=== PATIENT | female | born 1995 | race Caucasian/White ===

== ENCOUNTER 2018-10-12 13:32 | Emergency (ER) | payer OTHER ==
[2018-10-12] MEDS ORDERED: TETANUS & DIPHTHERIA TOX,ADULT 0.5 ML VIAL ONE (15:30)
[2018-10-12] MEDS ORDERED: LIDOCAINE 1% MPF 5 ML VIAL ONE (15:40)
--- NOTE | 2018-10-12 15:41 | ER ---
Nurse's Notes [facility] Name: Marlen Crenshaw Age: 22 yrs Sex: Female : 1995 Arrival Date: 10/12/2018 Time: 13:35 Bed 23 Private MD: Tio Macias Diagnosis: Acute tonsillitis;Acute pharyngitis Presentation: 10/12 13:45 Presenting complaint: Patient states: sore throat, fatigue x 3 days. Transition of sv care: patient was not received from another setting of care. Onset of symptoms was October 10, 2018. Initial Sepsis Screen: Does the patient meet any 2 criteria? No. Patient's initial sepsis screen is negative. Does the patient have a suspected source of infection? No. Patient's initial sepsis screen is negative. Care prior to arrival: None. 13:45 Method Of Arrival: Ambulatory sv 13:45 Acuity: BRENDA 4 sv 16:07 Risk Assessment: Do you want to hurt yourself or someone else? Patient reports no aj1 desire to harm self or others. Triage Assessment: 13:45 General: Appears in no apparent distress. uncomfortable, Behavior is calm, cooperative, sv appropriate for age. Pain: Complains of pain in throat Pain currently is 3 out of 10 on a pain scale. Quality of pain is described as burning. EENT: Throat has enlarged tonsils bilaterally. Neuro: Level of Consciousness is awake, alert, obeys commands, Oriented to person, place, time, situation, Gait is steady, Speech is normal. Respiratory: Respiratory effort is even, unlabored, Respiratory pattern is regular, symmetrical. Historical: - Allergies: 13:45 Sulfa (Sulfonamide Antibiotics); sv 13:45 Amoxicillin; sv 13:45 Clarithromycin; sv - PMHx: 13:45 None; sv - PSHx: 13:45 None; sv - Immunization history:: Adult Immunizations up to date. - Social history:: Smoking status: Patient uses tobacco products, denies chronic smoking, but will smoke occasionally. - Ebola Screening: : No symptoms or risks identified at this time. - Family history:: pertinent for not pertinent. Screenin:45 Abuse screen: Denies threats or abuse. Denies injuries from another. Nutritional aj1 screening: No deficits noted. Tuberculosis screening: No symptoms or risk factors identified. 16:07 Fall Risk None identified. aj1 Assessment: 15:45 General: Appears in no apparent distress. uncomfortable, Behavior is calm, cooperative, aj1 appropriate for age. Pain: Complains of pain in left aspect of posterior pharynx and right aspect of posterior pharynx. Neuro: Level of Consciousness is awake, alert, obeys commands. Cardiovascular: Patient's skin is warm and dry. Respiratory: Airway is patent Respiratory effort is even, unlabored, Respiratory pattern is regular, symmetrical, Breath sounds are clear bilaterally. GI: No signs and/or symptoms were reported involving the gastrointestinal system. : No signs and/or symptoms were reported regarding the genitourinary system. EENT: Throat is reddened has enlarged tonsils bilaterally. Derm: No signs and/or symptoms reported regarding the dermatologic system. Skin is pink, warm \T\ dry. normal. Musculoskeletal: No signs and/or symptoms reported regarding the musculoskeletal system. Circulation, motion, and sensation intact. 15:58 Reassessment: Patient's mother states patient is currently taking doxycycline and would aj1 like to know if patient should take both the doxy and the prescribed clindamycin at the same time. Will clarify with Dr. Heck. 16:03 Reassessment: Notified Dr. Heck who will come talk to the patient. aj1 16:38 Reassessment: Patient appears in no apparent distress at this time. No changes from aj1 previously documented assessment. Patient and/or family updated on plan of care and expected duration. Pain level reassessed. Patient is alert, oriented x 3, equal unlabored respirations, skin warm/dry/pink. Vital Signs: 13:46 BP 134 / 71; Pulse 77; Resp 16; Temp 98.2; Pulse Ox 99% ; Weight 65.77 kg; Height 5 ft. sv 8 in. (172.72 cm); Pain 3/10; 13:46 Body Mass Index 22.05 (65.77 kg, 172.72 cm) sv ED Course: 13:35 Patient arrived in ED. ag5 13:36 Tio Macias MD is Private Physician. ag5 13:45 Triage completed. sv 13:46 Arm band placed on. sv 14:39 Throat Culture Sent. sv 14:56 Narendra Heck MD is Attending Physician. maura 15:40 Tio Macias MD is Referral Physician. maura 15:45 nIes Aguila, RN is Primary Nurse. aj1 15:45 Patient has correct armband on for positive identification. Bed in low position. Call aj1 light in reach. Side rails up X 1. 15:45 No provider procedures requiring assistance completed. Patient did not have IV access aj1 during this emergency room visit. Administered Medications: 16:37 Drug: Clindamycin 300 mg Route: PO; aj1 16:39 Follow up: Response: No adverse reaction aj1 Outcome: 15:41 Discharge ordered by . [facility] 16:42 Discharged to home ambulatory. aj1 16:42 Condition: good 16:42 Discharge instructions given to patient, family, Instructed on discharge instructions, follow up and referral plans. medication usage, Demonstrated understanding of instructions, follow-up care, medications, Prescriptions given X 1. 16:46 Patient left the ED. aj Signatures: Ines Aguila, RN RN Yuridia Khalil RN RN sv Anderson, Corey, MD MD cha Gaskin, Alphonso ag5
--- NOTE | 2018-10-12 15:41 | EDPHYS ---
Physician Documentation [facility] Name: Marlen Crenshaw Age: 22 yrs Sex: Female : 1995 Arrival Date: 10/12/2018 Time: 13:35 Bed 23 Private MD: Tio Macias ED Physician Narendra Heck HPI: 10/12 15:34 This 22 yrs old Female presents to ER via Ambulatory with complaints of maura SWOLLEN TONSILS, Sore Throat. 15:34 The patient presents with sore throat. The patient describes throat pain as constant. maura Onset: The symptoms/episode began/occurred 3 day(s) ago. Severity of symptoms: At their worst the symptoms were mild. Modifying factors: The symptoms are alleviated by nothing. Associated signs and symptoms: The patient has no apparent associated signs or symptoms. The patient has not experienced similar symptoms in the past. Historical: - Allergies: 13:45 Sulfa (Sulfonamide Antibiotics); sv 13:45 Amoxicillin; sv 13:45 Clarithromycin; sv - PMHx: 13:45 None; sv - PSHx: 13:45 None; sv - Immunization history:: Adult Immunizations up to date. - Social history:: Smoking status: Patient uses tobacco products, denies chronic smoking, but will smoke occasionally. - Ebola Screening: : No symptoms or risks identified at this time. - Family history:: pertinent for not pertinent. ROS: 15:34 Constitutional: Negative for fever, chills, and weight loss, Eyes: Negative for injury, maura pain, redness, and discharge, Neck: Negative for injury, pain, and swelling, Cardiovascular: Negative for chest pain, palpitations, and edema, Respiratory: Negative for shortness of breath, cough, wheezing, and pleuritic chest pain, Abdomen/GI: Negative for abdominal pain, nausea, vomiting, diarrhea, and constipation, Back: Negative for injury and pain, : Negative for injury, bleeding, discharge, and swelling, MS/Extremity: Negative for injury and deformity, Skin: Negative for injury, rash, and discoloration, Neuro: Negative for headache, weakness, numbness, tingling, and seizure, Psych: Negative for depression, anxiety, suicide ideation, homicidal ideation, and hallucinations, Allergy/Immunology: Negative for hives, rash, and allergies, Endocrine: Negative for neck swelling, polydipsia, polyuria, polyphagia, and marked weight changes, Hematologic/Lymphatic: Negative for swollen nodes, abnormal bleeding, and unusual bruising. 15:34 ENT: Positive for difficulty swallowing, sore throat. Exam: 15:34 Constitutional: This is a well developed, well nourished patient who is awake, alert, maura and in no acute distress. Head/Face: Normocephalic, atraumatic. Eyes: Pupils equal round and reactive to light, extra-ocular motions intact. Lids and lashes normal. Conjunctiva and sclera are non-icteric and not injected. Cornea within normal limits. Periorbital areas with no swelling, redness, or edema. Neck: Trachea midline, no thyromegaly or masses palpated, and no cervical lymphadenopathy. Supple, full range of motion without nuchal rigidity, or vertebral point tenderness. No Meningismus. Chest/axilla: Normal chest wall appearance and motion. Nontender with no deformity. No lesions are appreciated. Cardiovascular: Regular rate and rhythm with a normal S1 and S2. No gallops, murmurs, or rubs. Normal PMI, no JVD. No pulse deficits. Respiratory: Lungs have equal breath sounds bilaterally, clear to auscultation and percussion. No rales, rhonchi or wheezes noted. No increased work of breathing, no retractions or nasal flaring. Abdomen/GI: Soft, non-tender, with normal bowel sounds. No distension or tympany. No guarding or rebound. No evidence of tenderness throughout. Back: No spinal tenderness. No costovertebral tenderness. Full range of motion. Skin: Warm, dry with normal turgor. Normal color with no rashes, no lesions, and no evidence of cellulitis. MS/ Extremity: Pulses equal, no cyanosis. Neurovascular intact. Full, normal range of motion. Neuro: Awake and alert, GCS 15, oriented to person, place, time, and situation. Cranial nerves II-XII grossly intact. Motor strength 5/5 in all extremities. Sensory grossly intact. Cerebellar exam normal. Normal gait. Psych: Awake, alert, with orientation to person, place and time. Behavior, mood, and affect are within normal limits. 15:34 ENT: Posterior pharynx: Tonsils: bilaterally enlarged, with erythema, no exudate. 15:42 Abdomen/GI: Inspection: abdomen appears normal, Bowel sounds: normal, Palpation: [facility] abdomen is soft and non-tender, mass, is not appreciated, Liver: no appreciated palpable abnormalities, Hernia: not appreciated. Vital Signs: 13:46 BP 134 / 71; Pulse 77; Resp 16; Temp 98.2; Pulse Ox 99% ; Weight 65.77 kg; Height 5 ft. sv 8 in. (172.72 cm); Pain 3/10; 13:46 Body Mass Index 22.05 (65.77 kg, 172.72 cm) MDM: 15:02 Patient medically screened. [facility] 15:40 Data reviewed: vital signs, nurses notes. [facility] 10/12 13:46 Order name: Strep; Complete Time: 15:26 10/12 14:06 Order name: Throat Culture EDNC Administered Medications: 16:37 Drug: Clindamycin 300 mg Route: PO; aj 16:39 Follow up: Response: No adverse reaction [facility] Disposition: 10/12/18 15:41 Discharged to Home. Impression: Acute tonsillitis, Acute pharyngitis. - Condition is Stable. - Prescriptions for Clindamycin HCl 300 mg Oral Capsule - take 1 capsule by ORAL route every 6 hours for 7 days; 28 capsule. - Medication Reconciliation Form, Thank You Letter, Antibiotic Education, Prescription Opioid Use form. - Follow up: Tio Macias MD; When: 2 - 3 days; Reason: Recheck today's complaints, Continuance of care, Re-evaluation by your physician. - Problem is new. - Symptoms have improved. Signatures: Dispatcher [employer] EDNC Ines Aguila RN RN aj1 Yuridia Meyers RN RN Narendra Heck MD MD [facility] Corrections: (The following items were deleted from the chart) 16:46 15:41 10/12/2018 15:41 Discharged to Home. Impression: Acute tonsillitis; Acute aj1 pharyngitis. Condition is Stable. Forms are Medication Reconciliation Form, Thank You Letter, Antibiotic Education, Prescription Opioid Use. Follow up: Tio Macias; When: 2 - 3 days; Reason: Recheck today's complaints, Continuance of care, Re-evaluation by your physician. Problem is new. Symptoms have improved. [facility]
[2018-10-12] MEDS ORDERED: CLINDAMYCIN HCL 150 MG CAP ONE (16:07)
[2018-10-12 17:39] VITALS: BP 134/71; TEMP 98.2; O2SAT 99
== END 2018-10-12 16:46 | disposition home or self-care (01) ==
LOC: ER 13:32
DX: J03.90 Acute tonsillitis, unspecified (principal); Z72.0 Tobacco use; Z88.1 Allergy status to other antibiotic agents; Z88.2 Allergy status to sulfonamides; Z88.3 Allergy status to other anti-infective agents
CPT/HCPCS: 87070; 87081; 90714; 99283

== ENCOUNTER 2019-10-19 17:10 | Emergency (ER) | payer OTHER ==
[2019-10-19] MEDS ORDERED: FAMOTIDINE 20 MG TAB ONE (17:46)
[2019-10-19] MEDS ORDERED: predniSONE 20 MG TAB ONE (17:46)
--- NOTE | 2019-10-19 19:21 | EDPHYS ---
Physician Documentation [facility] Name: Marlen Crenshaw Age: 23 yrs Sex: Female : 1995 Arrival Date: 10/19/2019 Time: 17:11 Bed 23 Private MD: Tio Macias ED Physician Ike Stockton HPI: 10/19 01:41 This 23 yrs old Female presents to ER via Wheelchair with complaints of snw Allergic Reaction. 01:41 The patient presents with itching, rash, redness of skin, itching at posterior throat. snw Onset: The symptoms/episode began/occurred suddenly, post ingestion of Doxycycline. Associated signs and symptoms: Pertinent positives: hives, rash, swelling. Possible causes: antibiotics, Doxy. Severity of symptoms: At their worst the symptoms were mild in the emergency department the symptoms have improved. The patient has experienced similar episodes in the past, multiple times. It is unknown whether or not the patient has recently seen a physician. Historical: - Allergies: 10/18 17:25 Amoxicillin; ph 17:25 Clarithromycin; ph 17:25 Sulfa (Sulfonamide Antibiotics); ph 17:25 Doxycycline; ph - PSHx: 17:25 None; ph - Immunization history:: Adult Immunizations unknown. - Social history:: Smoking status: Patient denies any tobacco usage or history of. ROS: 10/19 01:38 Constitutional: Negative for fever, chills, and weight loss, Eyes: Negative for injury, snw pain, redness, and discharge, ENT: Negative for injury, pain, and discharge, Neck: Negative for injury, pain, and swelling, Cardiovascular: Negative for chest pain, palpitations, and edema, Respiratory: Negative for shortness of breath, cough, wheezing, and pleuritic chest pain, Abdomen/GI: Negative for abdominal pain, nausea, vomiting, diarrhea, and constipation, Back: Negative for injury and pain, : Negative for injury, bleeding, discharge, and swelling, MS/Extremity: Negative for injury and deformity, Neuro: Negative for headache, weakness, numbness, tingling, and seizure, Psych: Negative for depression, anxiety, suicide ideation, homicidal ideation, and hallucinations. Skin: Positive for itching, pt states she had hives and itching in her throat relief captain but took 50mg benadryl and s/s improved. Pt taking Doxycycline for "small pelvic infection". Exam: 00:19 Constitutional: This is a well developed, well nourished patient who is awake, alert, snw and in no acute distress. Head/Face: Normocephalic, atraumatic. Eyes: Pupils equal round and reactive to light, extra-ocular motions intact. Lids and lashes normal. Conjunctiva and sclera are non-icteric and not injected. Cornea within normal limits. Periorbital areas with no swelling, redness, or edema. ENT: Nares patent. No nasal discharge, no septal abnormalities noted. Tympanic membranes are normal and external auditory canals are clear. Oropharynx with mild redness, swelling, no masses, exudates, or evidence of obstruction, uvula midline. Mucous membranes moist. Neck: Trachea midline, no thyromegaly or masses palpated, and no cervical lymphadenopathy. Supple, full range of motion without nuchal rigidity, or vertebral point tenderness. No Meningismus. Chest/axilla: Normal chest wall appearance and motion. Nontender with no deformity. No lesions are appreciated. Cardiovascular: Regular rate and rhythm with a normal S1 and S2. No gallops, murmurs, or rubs. Normal PMI, no JVD. No pulse deficits. Respiratory: Lungs have equal breath sounds bilaterally, clear to auscultation and percussion. No rales, rhonchi or wheezes noted. No increased work of breathing, no retractions or nasal flaring. Abdomen/GI: Soft, non-tender, with normal bowel sounds. No distension or tympany. No guarding or rebound. No evidence of tenderness throughout. Back: No spinal tenderness. No costovertebral tenderness. Full range of motion. MS/ Extremity: Pulses equal, no cyanosis. Neurovascular intact. Full, normal range of motion. Neuro: Awake and alert, GCS 15, oriented to person, place, time, and situation. Cranial nerves II-XII grossly intact. Motor strength 5/5 in all extremities. Sensory grossly intact. Cerebellar exam normal. Normal gait. Psych: Awake, alert, with orientation to person, place and time. Behavior, mood, and affect are within normal limits. 00:19 Skin: Appearance: normal except for affected area, pt scratching, no hives noted but + evidence of scratching to chest and bilateral legs. Vital Signs: 10/18 17:22 BP 141 / 92; Pulse 97; Resp 18; Temp 98.2; Pulse Ox 99% on R/A; Weight 61.23 kg; Height ph 5 ft. 8 in. (172.72 cm); 17:57 BP 128 / 86; Pulse 100; Resp 17; Pulse Ox 100% on R/A; Pain 0/10; ll1 18:02 BP 114 / 85 LA (man/reg); Pulse 94; Pulse Ox 100% ; jp3 19:04 BP 105 / 67; Pulse 68; Resp 16; Pulse Ox 100% ; ll1 17:22 Body Mass Index 20.52 (61.23 kg, 172.72 cm) ph MDM: 18:14 Patient medically screened. snw 10/19 00:20 Data reviewed: vital signs, nurses notes. Data interpreted: Pulse oximetry: on room air snw is 100 %. Interpretation: normal. Counseling: I had a detailed discussion with the patient and/or guardian regarding: the historical points, exam findings, and any diagnostic results supporting the discharge/admit diagnosis, the need for outpatient follow up, to return to the emergency department if symptoms worsen or persist or if there are any questions or concerns that arise at home. Response to treatment: the patient's symptoms have markedly improved after treatment. Special discussion: Based on the history and exam findings, there is no indication for further emergent testing or inpatient evaluation. I discussed with the patient/guardian the need to see the occupational health coordinator for further evaluation of the symptoms. I discussed with the patient/guardian the need to see the OB Gyne specialist for further evaluation of the symptoms. 01:40 ED course: gave clindamycin and observed pt in ED. c/o itching hands 25-30 min post snw ingestion, no airway issue. No noted rash. 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 Administered Medications: 10/18 17:45 Drug: predniSONE 40 mg Route: PO; ll1 19:09 Follow up: Response: No adverse reaction; RASS: Alert and Calm (0) ll1 17:45 Drug: Pepcid 20 mg Route: PO; ll1 19:09 Follow up: Response: No adverse reaction; RASS: Alert and Calm (0) ll1 17:45 Drug: Cleocin 300 mg Route: PO; ll1 19:10 Follow up: Response: No adverse reaction; RASS: Alert and Calm (0) ll1 19:25 Drug: Atarax 50 mg Route: PO; jb4 19:55 Follow up: Response: No adverse reaction; Marked relief of symptoms jb4 Disposition: 10/19/19 19:20 Discharged to Home. Impression: Pruritus, Allergy, unspecified. - Condition is Stable. - Discharge Instructions: Allergies, Adult, Hives. - Prescriptions for Prednisone 20 mg Oral Tablet - take 2 tablet by ORAL route once daily for 5 days; 10 tablet. Pepcid 20 mg Oral Tablet - take 1 tablet by ORAL route once daily; 20 tablet. - Medication Reconciliation Form, Thank You Letter, Antibiotic Education, Prescription Opioid Use form. - Follow up: Emergency Department; When: As needed; Reason: Worsening of condition. Follow up: Tio Macias MD; When: 2 - 3 days; Reason: Recheck today's complaints, Continuance of care, Re-evaluation by your physician. Addendum: 10/24/2019 07:09 Co-signature as Attending Physician, Ike Stockton MD. [facility] Signatures: Braenna Blake, GAMMA RAY OPERATOR-C GAMMA RAY OPERATOR-Csnw Joan Thompson RN RN Arnoldo Wheeler RN RN jb4 Tanika Morales RN RN ll1 Ike Stockton MD MD [email or web address] Corrections: (The following items were deleted from the chart) 10/18 20:00 19:20 10/19/2019 19:20 Discharged to Home. Impression: Pruritus; Allergy, unspecified. jb4 Condition is Stable. Forms are Medication Reconciliation Form, Thank You Letter, Antibiotic Education, Prescription Opioid Use. Follow up: Emergency Department; When: As needed; Reason: Worsening of condition. Follow up: Tio Macias; When: 2 - 3 days; Reason: Recheck today's complaints, Continuance of care, Re-evaluation by your physician. snw
--- NOTE | 2019-10-19 19:21 | ER ---
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 Coronavirus screen: Patient denies a cough. Patient reports shortness of breath or difficulty breathing. Patient denies measured and/or subjective temperature greater than 100.4F prior to today's visit. Patient denies travel on a cruise ship or to a country the [facility] currently lists as an affected area. Patient denies contact with known and/or suspected case of COVID-19. Ebola Screen: No symptoms or risks identified at this time. Onset: The symptoms/episode began/occurred gradually. Anaphylaxis evaluation, angioedema. Initial Sepsis Screen: Does the patient meet any 2 criteria? No. Patient's initial sepsis screen is negative. Does the patient have a suspected source of infection? No. Patient's initial sepsis screen is negative. Risk Assessment: Do you want to hurt yourself or someone else? Patient reports no desire to harm self or others. Onset of symptoms was October 19, 2019. 17:22 Method Of Arrival: Wheelchair ph 17:22 Acuity: BRENDA 3 ph Historical: - Allergies: 17:25 Amoxicillin; ph 17:25 Clarithromycin; ph 17:25 Sulfa (Sulfonamide Antibiotics); ph 17:25 Doxycycline; ph - PSHx: 17:25 None; ph - Immunization history:: Adult Immunizations unknown. - Social history:: Smoking status: Patient denies any tobacco usage or history of. Screenin:46 Abuse screen: Denies threats or abuse. Nutritional screening: No deficits noted. ll1 Tuberculosis screening: No symptoms or risk factors identified. Fall Risk None identified. Total Rayo Fall Scale indicates No Risk (0-24 pts). Assessment: 17:45 General: Appears in no apparent distress. Behavior is calm, cooperative. Pain: Denies ll1 pain. Respiratory: Airway is patent Trachea midline Respiratory effort is even, Respiratory pattern is regular, symmetrical, Breath sounds are clear bilaterally. GI: No deficits noted. Derm: Rash noted that is red, urticaria, Reports rash with itching to body. 18:45 Reassessment: Patient appears in no apparent distress at this time. No changes from ll1 previously documented assessment. Patient and/or family updated on plan of care and expected duration. Pain level reassessed. Patient is alert, oriented x 3, equal unlabored respirations, skin warm/dry/pink. 19:00 Reassessment: Patient appears in no apparent distress at this time. Patient and/or jb4 family updated on plan of care and expected duration. Pain level reassessed. Patient is alert, oriented x 3, equal unlabored respirations, skin warm/dry/pink. 19:59 Reassessment: Patient appears in no apparent distress at this time. Patient and/or jb4 family updated on plan of care and expected duration. Pain level reassessed. Patient is alert, oriented x 3, equal unlabored respirations, skin warm/dry/pink. Pt verbalized understanding of d/c and follow up instructions. Denies itching. No rash noted. Reports feeling overall better. Assisted to vehicle via wheelchair, went home with mother. Vital Signs: 17:22 BP 141 / 92; Pulse 97; Resp 18; Temp 98.2; Pulse Ox 99% on R/A; Weight 61.23 kg; Height ph 5 ft. 8 in. (172.72 cm); 17:57 BP 128 / 86; Pulse 100; Resp 17; Pulse Ox 100% on R/A; Pain 0/10; ll1 18:02 BP 114 / 85 LA (man/reg); Pulse 94; Pulse Ox 100% ; jp3 19:04 BP 105 / 67; Pulse 68; Resp 16; Pulse Ox 100% ; ll1 17:22 Body Mass Index 20.52 (61.23 kg, 172.72 cm) ph ED Course: 17:11 Patient arrived in ED. ag5 17:11 Tio Macias MD is Private Physician. ag5 17:24 Triage completed. ph 17:25 Arm band placed on Patient placed in an exam room. ph 17:28 Tanika Morales RN is Primary Nurse. ll1 17:29 Lou, Breanna, BASTING CLEANER-C [facility]. snw 17:29 Ike Stockton MD is Attending Physician. snw 17:40 Patient maintains SpO2 saturation greater than 95% on room air. jp3 17:47 Patient has correct armband on for positive identification. Bed in low position. Call ll1 light in reach. Side rails up X 1. 19:09 ICE pack to hands. jp3 19:20 Tio Macias MD is Referral Physician. snw 19:59 No provider procedures requiring assistance completed. Patient did not have IV access jb4 during this emergency room visit. Administered Medications: 17:45 Drug: predniSONE 40 mg Route: PO; ll1 19:09 Follow up: Response: No adverse reaction; RASS: Alert and Calm (0) ll1 17:45 Drug: Pepcid 20 mg Route: PO; ll1 19:09 Follow up: Response: No adverse reaction; RASS: Alert and Calm (0) ll1 17:45 Drug: Cleocin 300 mg Route: PO; ll1 19:10 Follow up: Response: No adverse reaction; RASS: Alert and Calm (0) ll1 19:25 Drug: Atarax 50 mg Route: PO; jb4 19:55 Follow up: Response: No adverse reaction; Marked relief of symptoms jb4 Outcome: 19:20 Discharge ordered by . snw 19:59 Discharged to home via wheelchair, with family. jb4 19:59 Condition: stable 19:59 Discharge instructions given to patient, Instructed on discharge instructions, follow up and referral plans. medication usage, Demonstrated understanding of instructions, follow-up care, medications, Prescriptions given X 2. 20:00 Patient left the ED. jb4 Signatures: Breanna Blake FNP-C BASTING CLEANER-Csnw Joan Thompson, RN RN Arnoldo Nielsen RN RN jb4 Shay Garza 3 Alphonso Langston 5 Tanika Morales, JARRELL RN ll1 Corrections: (The following items were deleted from the chart) 18:04 18:02 BP 114 / 85 Manual L Arm Regular; Pulse 84bpm; Pulse Ox 100%; jp3 jp3 18:13 17:22 BP 141 / 92; Pulse 97bpm; Resp 89bpm; Pulse Ox 99% RA; Temp 98.2F; 61.23 kg; ph Height 5 ft. 8 in.; BMI: 20.5; ph 19:00 19:00 Reassessment: Patient appears in no apparent distress at this time. No changes ll1 from previously documented assessment. Patient and/or family updated on plan of care and expected duration. Pain level reassessed. Patient is alert, oriented x 3, equal unlabored respirations, skin warm/dry/pink. ll1
[2019-10-19] MEDS ORDERED: hydrOXYzine HCL 25 MG TAB ONE (19:29)
[2019-10-19 20:23] VITALS: TEMP 98.2
[2019-10-19 20:25] VITALS: O2SAT 100
[2019-10-19 20:28] VITALS: BP 105/67
== END 2019-10-19 20:00 | disposition home or self-care (01) ==
LOC: ER 17:10
DX: L29.9 Pruritus, unspecified (principal); T36.4X5A Adverse effect of tetracyclines, initial encounter; Y92.9 Unspecified place or not applicable; Z88.1 Allergy status to other antibiotic agents; Z88.2 Allergy status to sulfonamides
CPT/HCPCS: 99284; J7512

== ENCOUNTER 2019-12-20 13:08 | Emergency (ER) | payer OTHER ==
--- NOTE | 2019-12-20 13:40 | ER ---
Nurse's Notes [facility] Name: Marlen Crenshaw Age: 24 yrs Sex: Female : 1995 Arrival Date: 12/20/2019 Time: 13:13 Bed 11 Private MD: Diagnosis: Acute upper respiratory infection, unspecified Presentation: 12/19 13:13 Chief complaint: Patient states: Pt denies any complaints. Wants to be tested for COVID dm5 to be able to attend a . Coronavirus screen: Client denies travel out of the [place] in the last 14 days. At this time, the client does not indicate any symptoms associated with coronavirus-19. Ebola Screen: Patient negative for fever greater than or equal to 101.5 degrees Fahrenheit, and additional compatible Ebola Virus Disease symptoms Patient denies exposure to infectious person. Patient denies travel to an Ebola-affected area in the 21 days before illness onset. No symptoms or risks identified at this time. Initial Sepsis Screen: Does the patient meet any 2 criteria? No. Patient's initial sepsis screen is negative. Does the patient have a suspected source of infection? No. Patient's initial sepsis screen is negative. Risk Assessment: Do you want to hurt yourself or someone else? Patient reports no desire to harm self or others. Onset of symptoms was December 20, 2019. 13:13 Method Of Arrival: Ambulatory dm5 13:13 Acuity: BRENDA 5 dm5 Triage Assessment: 13:16 General: Appears in no apparent distress. Behavior is calm, cooperative. Pain: Denies dm5 pain. Neuro: Level of Consciousness is awake, alert, obeys commands, Oriented to person, place, time, situation. Cardiovascular: No deficits noted. Respiratory: No deficits noted. Derm: Skin is pink, warm \T\ dry. 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 - Social history:: Smoking status: Patient denies any tobacco usage or history of. Patient/guardian denies using tobacco products. - Family history:: not pertinent. Screenin:49 Abuse screen: Denies threats or abuse. Denies injuries from another. Nutritional dm5 screening: No deficits noted. Tuberculosis screening: No symptoms or risk factors identified. Fall Risk None identified. Assessment: 13:49 General: Appears in no apparent distress. comfortable, Behavior is calm, cooperative. dm5 Pain: Denies pain. Neuro: No deficits noted. Cardiovascular: No deficits noted. Respiratory: No deficits noted. Vital Signs: 13:13 BP 122 / 63; Pulse 89; Resp 18; Temp 99.3; Pulse Ox 99% on R/A; Weight 61.69 kg; Height dm5 5 ft. 8 in. (172.72 cm); Pain 0/10; 13:13 Body Mass Index 20.68 (61.69 kg, 172.72 cm) [facility] ED Course: 13:13 Patient arrived in ED. [facility] 13:15 Triage completed. [facility] 13:16 Narendra Heck MD is Attending Physician. [facility] 13:16 Arm band placed on left wrist. Patient placed in an exam room. [facility] 13:18 Jenny Lynn, RN is Primary Nurse. [facility] 13:49 Patient has correct armband on for positive identification. [facility] 13:49 No provider procedures requiring assistance completed. Patient did not have IV access [facility] during this emergency room visit. Administered Medications: No medications were administered Outcome: 13:39 Discharge ordered by . [facility] 13:49 Discharged to home ambulatory. [facility] 13:49 Condition: good 13:49 Discharge instructions given to patient. 13:50 Patient left the ED. [facility] Addendum: 12/22/2019 18:17 Addendum: COVID-19 Result: Negative result given to RN to notify pt. Contacted by: Dr. huang Yin. Notified pt of negative COVID 19 swab results. Pt advised that even with a negative test result they should remain in isolation until symptom free for 3 days without medication. Pt also advised to return to the ED for worsening symptoms. Signatures: Jenny Lynn, RN RN [facility] Umang, Narendra, MD MD maura Smirch, Tracy, RN RN ss
--- NOTE | 2019-12-20 13:40 | EDPHYS ---
Physician Documentation [facility] Name: Marlen Crenshaw Age: 24 yrs Sex: Female : 1995 Arrival Date: 12/20/2019 Time: 13:13 Bed 11 Private MD: ED Physician Narendra Heck HPI: 12/19 13:35 This 24 yrs old Female presents to ER via Ambulatory with complaints of Covid maura test. 13:35 needs test for covid, possible exposure. Onset: The symptoms/episode began/occurred 2 maura day(s) ago. Severity of symptoms: At their worst the symptoms were mild in the emergency department the symptoms are unchanged. The patient has not experienced similar symptoms in the past. 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 - Social history:: Smoking status: Patient denies any tobacco usage or history of. Patient/guardian denies using tobacco products. - Family history:: not pertinent. ROS: 13:35 Constitutional: Negative for fever, chills, and weight loss, Eyes: Negative for injury, maura pain, redness, and discharge, Neck: Negative for injury, pain, and swelling, Cardiovascular: Negative for chest pain, palpitations, and edema, Respiratory: Negative for shortness of breath, cough, wheezing, and pleuritic chest pain, Abdomen/GI: Negative for abdominal pain, nausea, vomiting, diarrhea, and constipation, Back: Negative for injury and pain, : Negative for injury, bleeding, discharge, and swelling, MS/Extremity: Negative for injury and deformity, Skin: Negative for injury, rash, and discoloration, Neuro: Negative for headache, weakness, numbness, tingling, and seizure, Psych: Negative for depression, anxiety, suicide ideation, homicidal ideation, and hallucinations, Allergy/Immunology: Negative for hives, rash, and allergies, Endocrine: Negative for neck swelling, polydipsia, polyuria, polyphagia, and marked weight changes, Hematologic/Lymphatic: Negative for swollen nodes, abnormal bleeding, and unusual bruising. 13:35 ENT: Positive for nasal discharge. Exam: 13:35 Constitutional: This is a well developed, well nourished patient who is awake, alert, maura and in no acute distress. Head/Face: Normocephalic, atraumatic. Eyes: Pupils equal round and reactive to light, extra-ocular motions intact. Lids and lashes normal. Conjunctiva and sclera are non-icteric and not injected. Cornea within normal limits. Periorbital areas with no swelling, redness, or edema. ENT: Nares patent. No nasal discharge, no septal abnormalities noted. Tympanic membranes are normal and external auditory canals are clear. Oropharynx with no redness, swelling, or masses, exudates, or evidence of obstruction, uvula midline. Mucous membranes moist. Neck: Trachea midline, no thyromegaly or masses palpated, and no cervical lymphadenopathy. Supple, full range of motion without nuchal rigidity, or vertebral point tenderness. No Meningismus. Chest/axilla: Normal chest wall appearance and motion. Nontender with no deformity. No lesions are appreciated. Cardiovascular: Regular rate and rhythm with a normal S1 and S2. No gallops, murmurs, or rubs. Normal PMI, no JVD. No pulse deficits. Respiratory: Lungs have equal breath sounds bilaterally, clear to auscultation and percussion. No rales, rhonchi or wheezes noted. No increased work of breathing, no retractions or nasal flaring. Abdomen/GI: Soft, non-tender, with normal bowel sounds. No distension or tympany. No guarding or rebound. No evidence of tenderness throughout. Back: No spinal tenderness. No costovertebral tenderness. Full range of motion. Skin: Warm, dry with normal turgor. Normal color with no rashes, no lesions, and no evidence of cellulitis. MS/ Extremity: Pulses equal, no cyanosis. Neurovascular intact. Full, normal range of motion. Neuro: Awake and alert, GCS 15, oriented to person, place, time, and situation. Cranial nerves II-XII grossly intact. Motor strength 5/5 in all extremities. Sensory grossly intact. Cerebellar exam normal. Normal gait. Psych: Awake, alert, with orientation to person, place and time. Behavior, mood, and affect are within normal limits. 13:35 Neck: ROM/movement: is normal, no acute changes, Meningeal signs: are not present, Kernig's sign is negative, Brudzinski's sign is negative. Vital Signs: 13:13 BP 122 / 63; Pulse 89; Resp 18; Temp 99.3; Pulse Ox 99% on R/A; Weight 61.69 kg; Height dm5 5 ft. 8 in. (172.72 cm); Pain 0/10; 13:13 Body Mass Index 20.68 (61.69 kg, 172.72 cm) dm5 MDM: 13:16 Patient medically screened. maura 13:38 Data reviewed: vital signs, nurses notes. Data interpreted: environmental monitoring technician: not maura applicable for this patient encounter. Pulse oximetry: on room air is 99 %. Data interpreted: environmental monitoring technician: rate is 89 beats/min. Test interpretation: by ED physician or midlevel provider:. Counseling: I had a detailed discussion with the patient and/or guardian regarding: the historical points, exam findings, and any diagnostic results supporting the discharge/admit diagnosis, the need for outpatient follow up, for definitive care, a family practitioner. ED course: non toxic , well hydrated. 12/19 13:17 Order name: COVID-19 maura Administered Medications: No medications were administered Disposition: 12/20/19 13:39 Discharged to Home. Impression: Acute upper respiratory infection, unspecified. - Condition is Stable. - Discharge Instructions: Upper Respiratory Infection, Adult, Cool Mist Vaporizer, Upper Respiratory Infection, Adult, [id number], Cough, Adult, COVID-19. - Medication Reconciliation Form, Thank You Letter, Antibiotic Education, Prescription Opioid Use form. - Follow up: Private Physician; When: 2 - 3 days; Reason: Recheck today's complaints, Continuance of care, Re-evaluation by your physician. - Problem is new. - Symptoms have improved. Signatures: Dispatcher [employer] EDMS Jenny Lynn RN RN dm5 Narendra Heck MD MD cha Corrections: (The following items were deleted from the chart) 13:50 13:39 12/20/2019 13:39 Discharged to Home. Impression: Acute upper respiratory dm5 infection, unspecified. Condition is Stable. Forms are Medication Reconciliation Form, Thank You Letter, Antibiotic Education, Prescription Opioid Use. Follow up: Private Physician; When: 2 - 3 days; Reason: Recheck today's complaints, Continuance of care, Re-evaluation by your physician. Problem is new. Symptoms have improved. maura
[2019-12-20 13:56] VITALS: BP 122/63; TEMP 99.3; O2SAT 99
== END 2019-12-20 13:50 | disposition home or self-care (01) ==
LOC: ER 13:08
DX: J06.9 Acute upper respiratory infection, unspecified (principal); Z20.828 Contact with and (suspected) exposure to other viral communicable diseases; R09.89 Other specified symptoms and signs involving the circulatory and respiratory systems; Z88.0 Allergy status to penicillin; Z88.1 Allergy status to other antibiotic agents; Z88.2 Allergy status to sulfonamides
CPT/HCPCS: 99281; U0002

== ENCOUNTER 2020-06-19 21:32 | Emergency (ER) | payer BC, OTHER ==
[2020-06-19] MEDS ORDERED: METHYLPREDNISOLONE 125 MG INJ ONE (22:25)
[2020-06-19] MEDS ORDERED: FAMOTIDINE 20 MG/2 ML VIAL IV ONE (22:26)
[2020-06-19] MEDS ORDERED: DIPHENHYDRAMINE 50 MG/ML VIAL ONE (23:13)
--- NOTE | 2020-06-20 02:05 | EDPHYS ---
Physician Documentation [facility] Name: Marlen Crenshaw Age: 24 yrs Sex: Female : 1995 Arrival Date: 06/19/2020 Time: 21:37 Bed 16 Private MD: ED Physician Edmund Hernandez HPI: 06/19 21:57 This 24 yrs old Female presents to ER via Ambulatory with complaints of rn Allergic Reaction. 21:57 The patient presents with itching, localized swelling, swelling of the lips. Onset: The rn symptoms/episode began/occurred today. Possible causes: antibiotics, clindamycin. At home the patient or guardian has treated the symptoms with Benadryl. Severity of symptoms: At their worst the symptoms were moderate in the emergency department the symptoms have improved. The patient has experienced similar episodes in the past. Reports felt like was getting "yeast infection", got clindamycin prescribed, assumes because allergic to multiple other drugs, then began feeling throat close, subjective swelling of mouth and lips, and difficulty breathing, took 3 benadryl and came here, markedly improved now. No sensation of swelling or sob. . 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 - Social history:: Smoking status: Patient/guardian denies using tobacco, the patient reports quitting approximately 1 years ago. - Family history:: not pertinent. - Hospitalizations: : No recent hospitalization is reported. ROS: 21:57 Constitutional: Negative for fever, chills, and weight loss, Eyes: Negative for injury, rn pain, redness, and discharge, ENT: Negative for injury, pain, and discharge, Neck: Negative for injury, pain, and swelling, Cardiovascular: Negative for chest pain, palpitations, and edema, Respiratory: Negative for shortness of breath, cough, wheezing, and pleuritic chest pain, Abdomen/GI: Negative for abdominal pain, nausea, vomiting, diarrhea, and constipation, MS/Extremity: Negative for injury and deformity, Skin: Negative for injury, rash, and discoloration, Neuro: Negative for headache, weakness, numbness, tingling, and seizure. Exam: 21:57 Constitutional: This is a well developed, well nourished patient who is awake, alert, rn and in no acute distress. Head/Face: Normocephalic, atraumatic. ENT: No oral swelling, no stridor, uvula midline and no swelling Neck: Trachea midline, no masses palpated Cardiovascular: Regular rate and rhythm. No pulse deficits. Respiratory: No increased work of breathing, no retractions or nasal flaring. Abdomen/GI: soft, non-tender Skin: Warm, dry, no rashes. MS/ Extremity: Pulses equal, no cyanosis. Neuro: Awake and alert, GCS 15, ambulatory to room without difficulty or assistance. Vital Signs: 21:43 BP 130 / 91; Pulse 90; Resp 16 S; Temp 98.1(TE); Pulse Ox 100% on R/A; Weight 61.23 kg ca1 (R); Height 5 ft. 8 in. (172.72 cm) (M); 22:45 BP 125 / 87; Pulse 72; Resp 16; Pulse Ox 100% on R/A; jb4 23:30 BP 122 / 80; Pulse 75; Resp 15; Pulse Ox 100% on R/A; jb4 06/20 00:15 BP 129 / 81; Pulse 81; Resp 17; Pulse Ox 99% on R/A; jb4 01:15 BP 110 / 64; Pulse 59; Resp 18; Pulse Ox 98% on R/A; ll2 02:07 BP 108 / 62; Pulse 68; Resp 17; Pulse Ox 98% on R/A; ll2 06/19 21:43 Body Mass Index 20.53 (61.23 kg, 172.72 cm) ca1 MDM: 06/19 21:48 Patient medically screened. 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 Reports this current change nothing like earlier, felt much worse earlier. . 23:39 ED course: Improved after bendaryl, ambulatory without difficulty to bathroom. . rn 06/20 00:49 ED course: Pt continues to improve, will cont to observe for 6 hour observation, rn symptoms began at 8pm.. 02:02 Differential diagnosis: urticaria, acute allergic reaction. Data reviewed: vital signs, rn nurses notes, and as a result, I will discharge patient. Counseling: I had a detailed discussion with the patient and/or guardian regarding: the historical points, exam findings, and any diagnostic results supporting the discharge/admit diagnosis, the need for outpatient follow up, to return to the emergency department if symptoms worsen or persist or if there are any questions or concerns that arise at home. Response to treatment: the patient's symptoms have markedly improved after treatment, the patient's condition has returned to base line, and as a result, I will discharge patient. ED course: Pt states feels much better, asymptomatic, will dc home with return precautions, steroids, prn benadryl. . 06/19 21:57 Order name: IV Start; Complete Time: 22:24 rn Administered Medications: 06/19 22:20 Drug: SOLU-Medrol 125 mg Route: IVP; Site: left antecubital; jb4 23:03 Follow up: Response: No adverse reaction jb4 22:20 Drug: Pepcid 20 mg Route: IVP; Site: left antecubital; jb4 23:03 Follow up: Response: No adverse reaction [facility] 22:55 Drug: Benadryl 25 mg Route: IVP; Site: left antecubital; jb4 Disposition: 06/20/20 02:03 Discharged to Home. Impression: Acute allergic reaction. - Condition is Stable. - Prescriptions for Prednisone 20 mg Oral Tablet - take 3 tablet by ORAL route once daily for 5 days; 15 tablet. EpiPen 0.3 mg Injection auto- injector - inject 1 pen by INTRAMUSCULAR route one time As needed Inject into the outer portion of the thigh, through clothing if necessary. Indicated in the emergency treatment of allergic reactions; 2 Pack. - Medication Reconciliation Form, Thank You Letter, Antibiotic Education, Prescription Opioid Use form. - Follow up: Private Physician; When: As needed; Reason: Recheck today's complaints, Re-evaluation by your physician. - Problem is new. - Symptoms have improved. Signatures: Edmund Hernandez MD MD rn Bryson, James, RN RN jb Irene Galeana RN RN [facility] Cherie Alvarado RN RN ll2 Corrections: (The following items were deleted from the chart) 06/20 02:10 02:03 06/20/2020 02:03 Discharged to Home. Impression: Acute allergic reaction. ll2 Condition is Stable. Prescriptions for Prednisone 20 mg Oral Tablet - take 3 tablet by ORAL route once daily for 5 days; 15 tablet, EpiPen 0.3 mg Injection auto-injector - inject 1 pen by INTRAMUSCULAR route one time As needed Inject into the outer portion of the thigh, through clothing if necessary. Indicated in the emergency treatment of allergic reactions; 2 Pack. and Forms are Medication Reconciliation Form, Thank You Letter, Antibiotic Education, Prescription Opioid Use. Follow up: Private Physician; When: As needed; Reason: Recheck today's complaints, Re-evaluation by your physician. Problem is new. Symptoms have improved. rn
--- NOTE | 2020-06-20 02:05 | ER ---
Nurse's Notes [facility] Name: Marlen Crenshaw Age: 24 yrs Sex: Female : 1995 Arrival Date: 06/19/2020 Time: 21:37 Bed 16 Private MD: Diagnosis: Acute allergic reaction Presentation: 06/19 21:43 Chief complaint: Patient states: Allergic reaction to Clindamycin. Symptoms started an ca1 hour ago. Itching, hives, tongue and lips swelling, throat feels closing, had trouble breathing but feeling better now. Took 3 Benadryl 30 minutes. S/S improved. Started taking Clindamycin on Friday. Took Clindamycin last fall and did not have an allergic reaction. Coronavirus screen: Client denies travel out of the [place] in the last 14 days. At this time, the client does not indicate any symptoms associated with coronavirus-19. Ebola Screen: Patient negative for fever greater than or equal to 101.5 degrees Fahrenheit, and additional compatible Ebola Virus Disease symptoms Patient denies exposure to infectious person. Patient denies travel to an Ebola-affected area in the 21 days before illness onset. No symptoms or risks identified at this time. Initial Sepsis Screen: Does the patient meet any 2 criteria? No. Patient's initial sepsis screen is negative. Does the patient have a suspected source of infection? No. Patient's initial sepsis screen is negative. Risk Assessment: Do you want to hurt yourself or someone else? Patient reports no desire to harm self or others. Onset of symptoms was June 19, 2020. 21:43 Method Of Arrival: Ambulatory ca1 21:43 Acuity: BRENDA 4 ca1 21:45 Onset: The symptoms/episode began/occurred suddenly. ll2 06/20 02:08 Anaphylaxis evaluation, the patient reports or I have noted the following symptoms ll2 which indicate a significant risk of anaphylaxis: lightheadedness shortness of breath. 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 - Social history:: Smoking status: Patient/guardian denies using tobacco, the patient reports quitting approximately 1 years ago. - Family history:: not pertinent. - Hospitalizations: : No recent hospitalization is reported. Screenin:47 Abuse screen: Denies threats or abuse. Nutritional screening: No deficits noted. jb4 Tuberculosis screening: No symptoms or risk factors identified. Fall Risk None identified. Assessment: 21:47 General: Appears in no apparent distress. comfortable, Behavior is calm, cooperative, jb4 appropriate for age. Pain: Denies pain. Neuro: Level of Consciousness is awake, alert, obeys commands, Oriented to person, place, time, situation. Cardiovascular: Patient's skin is warm and dry. Respiratory: Airway is patent Respiratory effort is even, unlabored, Respiratory pattern is regular, symmetrical, Breath sounds are clear bilaterally. GI: No signs and/or symptoms were reported involving the gastrointestinal system. : No signs and/or symptoms were reported regarding the genitourinary system. EENT: No signs and/or symptoms were reported regarding the EENT system. Derm: Skin is intact, Skin is pink, warm \T\ dry. Musculoskeletal: Circulation, motion, and sensation intact. Range of motion:. 22:50 Reassessment: PT reports an increase in burning and itching in her lips and in her jb4 legs, as well as feeling that her lips, throat, and tongue are swelling. Respirations are even and unlabored O2 is 100% on RA, throat appears clear with no additional swelling noted to the tongue. No distress noted. Provider notified, See MAR for orders. 23:40 Reassessment: Patient appears in no apparent distress at this time. Patient and/or jb4 family updated on plan of care and expected duration. Pain level reassessed. Patient is alert, oriented x 3, equal unlabored respirations, skin warm/dry/pink. PT reports feeling much better and feeling as though she is able to breathe better. Pt reports still having some tingling and burning in her lips w/ some tightness in her throat. reports overall feeling better. Denies tongue swelling. 06/20 00:25 Reassessment: Patient appears in no apparent distress at this time. Patient and/or jb4 family updated on plan of care and expected duration. Pain level reassessed. Patient is alert, oriented x 3, equal unlabored respirations, skin warm/dry/pink. 01:59 Reassessment: Patient and/or family updated on plan of care and expected duration. Pain ll2 level reassessed. Patient is alert, oriented x 3, equal unlabored respirations, skin warm/dry/pink. 02:05 Reassessment: pt states improved symptoms, ERD notified. ll2 Vital Signs: 06/19 21:43 BP 130 / 91; Pulse 90; Resp 16 S; Temp 98.1(TE); Pulse Ox 100% on R/A; Weight 61.23 kg ca1 (R); Height 5 ft. 8 in. (172.72 cm) (M); 22:45 BP 125 / 87; Pulse 72; Resp 16; Pulse Ox 100% on R/A; jb4 23:30 BP 122 / 80; Pulse 75; Resp 15; Pulse Ox 100% on R/A; jb4 06/20 00:15 BP 129 / 81; Pulse 81; Resp 17; Pulse Ox 99% on R/A; jb4 01:15 BP 110 / 64; Pulse 59; Resp 18; Pulse Ox 98% on R/A; ll2 02:07 BP 108 / 62; Pulse 68; Resp 17; Pulse Ox 98% on R/A; ll2 06/19 21:43 Body Mass Index 20.53 (61.23 kg, 172.72 cm) ca1 ED Course: 06/19 21:37 Patient arrived in ED. am4 21:47 Triage completed. ca1 21:47 Patient has correct armband on for positive identification. Bed in low position. Call jb4 light in reach. Side rails up X 1. Pulse ox on. NIBP on. 21:48 Arnoldo Wheeler, RN is Primary Nurse. jb4 21:48 Edmund Hernandez MD is Attending Physician. rn 21:48 Arm band placed on right wrist. ca1 22:20 Inserted saline lock: 20 gauge in left antecubital area, using aseptic technique. jb4 06/20 02:09 No provider procedures requiring assistance completed. IV discontinued, intact, ll2 bleeding controlled, No redness/swelling at site. Pressure dressing applied. Administered Medications: 06/19 22:20 Drug: SOLU-Medrol 125 mg Route: IVP; Site: left antecubital; jb4 23:03 Follow up: Response: No adverse reaction jb4 22:20 Drug: Pepcid 20 mg Route: IVP; Site: left antecubital; jb4 23:03 Follow up: Response: No adverse reaction jb4 22:55 Drug: Benadryl 25 mg Route: IVP; Site: left antecubital; jb4 Outcome: 06/20 02:03 Discharge ordered by . rn 02:09 Discharged to home ambulatory. ll2 02:09 Condition: stable 02:09 Discharge instructions given to patient, Instructed on discharge instructions, follow up and referral plans. medication usage, Demonstrated understanding of instructions, follow-up care, medications, Prescriptions given X 2. 02:10 Patient left the ED. ll2 Signatures: Edmund Hernandez MD MD rn Bryson, James RN JARRELL jb4 Irene Galeana RN RN Cherie Hickey RN JARRELL [email or web address] Danuta Sanchez Corrections: (The following items were deleted from the chart) 06/19 21:49 21:43 Chief complaint: Patient states: Allergic reaction to Clindamycin. Symptoms ca1 started an hour ago. Itching, hives, tongue and lips swelling, throat feels closing, had trouble breathing but feeling better now. Took 3 Benadryl 30 minutes. Started taking Clindamycin on Friday. Took Clindamycin last fall and did not have an allergic reaction ca1 06/20 00:41 00:00 BP 116 / 76; Pulse 80bpm; Resp 18bpm; Pulse Ox 100% RA; jb4 jb4
[2020-06-20 06:29] VITALS: TEMP 98.1
[2020-06-20 06:34] VITALS: O2SAT 98
[2020-06-20 06:35] VITALS: BP 108/62
== END 2020-06-20 02:10 | disposition home or self-care (01) ==
LOC: ER 21:32
DX: T78.40XA Allergy, unspecified, initial encounter (principal)
CPT/HCPCS: J1200; J2930; 96374; 96375; 99284